=== PATIENT | female | born 1950 | race Caucasian/White ===

== ENCOUNTER 2019-12-04 07:12 | Inpatient (IN) | payer MEDICARE, MEDICAID ==
[~2019-12-04] VITALS: Ht 152.4 cm; Wt 53.1 kg
[~2019-12-04 07:12] MED LIST: ASPI-1497 PO; ATEN-42 PO; CALCIUM; HYDROCHLOROTHIAZIDE; LOSA25TA26 PO
[2019-12-04] MEDS ORDERED: ACETAMINOPHEN 325MG TABLET PO ONE (07:45)
[2019-12-04 07:49] LABS: BASOPHILS % 0.5 % (0.0-2.0); EOSINOPHILS % 2.2 % (0.0-5.0); HEMATOCRIT. 39.5 % (36.0-48.0); HEMOGLOBIN. 12.9 g/dL (12.0-16.0); LYMPHOCYTES % 20.5 % (20.0-50.0); MEAN CORPUSCULAR VOLUME 88.9 fL (81.0-99.0); MONOCYTES % 7.7 % (2.0-8.0); NEUTROPHILS % 69.1 % (40.0-76.0); PLATELET 168 x1000/uL (130-400); RED BLOOD CELL COUNT 4.44 mill/uL (4.2-5.4)
[2019-12-04 07:55] LABS: CHLORIDE 102 mEq/L (98-107)
[2019-12-04] MEDS ORDERED: ASPIRIN 325MG EC TABLET PO ONE (08:30)
[2019-12-04 10:30] VITALS: BP 96/62
[2019-12-04] MEDS ORDERED: ZOLPIDEM TARTRATE 5MG TABLET PO PRN (11:00)
[2019-12-04] MEDS ORDERED: ONDANSETRON HCL 4MG/2ML INJ IV PRN (11:00)
[2019-12-04] MEDS ORDERED: POTASSIUM CHLORIDE 20MEQ TABLET SR PO SCH (11:00)
[2019-12-04] MEDS ORDERED: ACETAMINOPHEN 325MG TABLET PO PRN (11:00)
[2019-12-04] MEDS ORDERED: CLONIDINE 0.1MG TABLET PO PRN (11:00)
[2019-12-04] MEDS ORDERED: DOCUSATE SODIUM 100MG CAPSULE PO PRN (11:00)
[2019-12-04] MEDS ORDERED: MAGNESIUM/ALUMINUM HYDROXIDE/SIMETHICONE 30ML UDC PO PRN (11:00)
[2019-12-04] MEDS ORDERED: DIPHENHYDRAMINE 50MG/ML VIAL IV PRN (11:00)
[2019-12-04] MEDS ORDERED: GUAIFENESIN 200MG/10ML SUGAR FREE UDC PO PRN (11:00)
[2019-12-04 12:00] VITALS: BP 96/45
[2019-12-04] MEDS ORDERED: POTASSIUM CHLORIDE 20MEQ TABLET SR PO NR (12:00)
[2019-12-04] MEDS ORDERED: ENOXAPARIN 40MG/0.4ML SYR SUBCUT SCH (12:00)
[2019-12-04] MEDS: DILTIAZEM HCL 60MG TABLET PO SCH ×3 (12:00→23:47)
[2019-12-04] MEDS: APIXABAN 5 MG TABLET PO SCH ×2 (12:37→21:37)
[2019-12-04] MEDS: MAGNESIUM GLUCONATE 500MG TABLET PO SCH (13:30)
[2019-12-04] MEDS: SODIUM CHLORIDE 0.9% INJ 3ML FLUSH IVF SCH ×2 (14:16→21:37)
[2019-12-04] MEDS ORDERED: METO5TAB7 PO (15:23)
[2019-12-04] MEDS ORDERED: CARV6.2548 PO (15:23)
[2019-12-04] MEDS ORDERED: DEXL60CA3 PO (15:23)
[2019-12-04] MEDS ORDERED: CALC-900 PO (15:23)
[2019-12-04] MEDS ORDERED: APIX5TAB PO (15:23)
[2019-12-04 16:00] VITALS: BP 96/62
[2019-12-04] MEDS: POTASSIUM CHLORIDE 20MEQ TABLET SR PO SCH (17:32)
[2019-12-04] MEDS: FUROSEMIDE 40MG TABLET PO SCH (18:00)
[2019-12-04] MEDS: DIGOXIN 125MCG TABLET PO SCH (18:21)
[2019-12-04 21:42] VITALS: BP 90/70
[2019-12-05] VITALS (8 sets, daily range): BP systolic 87–128; BP diastolic 63–98
[2019-12-05] MEDS: ACETAMINOPHEN 325MG TABLET PO PRN (04:33)
[2019-12-05] MEDS: DILTIAZEM HCL 60MG TABLET PO SCH (06:00)
[2019-12-05] MEDS: FUROSEMIDE 40MG TABLET PO SCH ×2 (06:00→18:01)
[2019-12-05] MEDS: SODIUM CHLORIDE 0.9% INJ 3ML FLUSH IVF SCH ×3 (06:15→21:02)
[2019-12-05 06:48] LABS: BASOPHILS % 0.6 % (0.0-2.0); EOSINOPHILS % 2.8 % (0.0-5.0); HEMATOCRIT. 39.4 % (36.0-48.0); LYMPHOCYTES % 17.8 % (20.0-50.0); MEAN CORPUSCULAR HEMOGLOBIN 29.1 pg (28.0-32.0); MEAN PLATELET VOLUME 10.1 fl (7.4-10.4); MONOCYTES % 7.6 % (2.0-8.0); NEUTROPHILS % 71.2 % (40.0-76.0); PLATELET 157 x1000/uL (130-400); RED BLOOD CELL COUNT 4.47 mill/uL (4.2-5.4); RED CELL DISTRIBUTION WIDTH 14.6 % (11.6-14.6)
[2019-12-05 07:20] LABS: CHLORIDE 103 mEq/L (98-107)
[2019-12-05 07:30] LABS: PHOSPHORUS 3.5 mg/dL (2.5-4.9)
[2019-12-05 07:31] LABS: LDL CHOLESTEROL 73 mg/dL (5-100)
[2019-12-05 07:33] LABS: HDL CHOLESTEROL 45 mg/dL (40-59)
[2019-12-05] MEDS: MAGNESIUM GLUCONATE 500MG TABLET PO SCH (09:03)
[2019-12-05] MEDS: APIXABAN 5 MG TABLET PO SCH ×2 (09:03→20:57)
[2019-12-05] MEDS: POTASSIUM CHLORIDE 20MEQ TABLET SR PO SCH ×2 (09:03→16:31)
[2019-12-05] MEDS: DILTIAZEM HCL 90MG TABLET PO SCH ×2 (12:00→18:01)
[2019-12-05] MEDS ORDERED: MAGNESIUM 2 G PREMIX 50 ML IV NR (13:00)
[2019-12-05] MEDS: DIGOXIN 125MCG TABLET PO SCH (18:01)
[2019-12-05] MEDS: AMIODARONE HCL 200 MG TABLET PO SCH (20:58)
[2019-12-06] VITALS: BP 142/86
[2019-12-06] MEDS: DILTIAZEM HCL 90MG TABLET PO SCH ×4 (00:36→17:51)
[2019-12-06 04:00] VITALS: BP 134/77
[2019-12-06] MEDS: FUROSEMIDE 40MG TABLET PO SCH ×3 (05:07→18:07)
[2019-12-06] MEDS: SODIUM CHLORIDE 0.9% INJ 3ML FLUSH IVF SCH ×3 (05:07→21:06)
[2019-12-06 06:31] LABS: BASOPHILS % 0.7 % (0.0-2.0); HEMATOCRIT. 42.5 % (36.0-48.0); HEMOGLOBIN. 14.1 g/dL (12.0-16.0); LYMPHOCYTES % 16.9 % (20.0-50.0); MEAN CORPUSCULAR VOLUME 87.3 fL (81.0-99.0); MEAN PLATELET VOLUME 10.3 fl (7.4-10.4); MONOCYTES % 8.2 % (2.0-8.0); NEUTROPHILS % 72.2 % (40.0-76.0); PLATELET 170 x1000/uL (130-400); RED BLOOD CELL COUNT 4.87 mill/uL (4.2-5.4); RED CELL DISTRIBUTION WIDTH 15.2 % (11.6-14.6)
[2019-12-06 06:39] LABS: CHLORIDE 98 mEq/L (98-107)
[2019-12-06 08:00] VITALS: BP 109/86
[2019-12-06] MEDS: APIXABAN 5 MG TABLET PO SCH ×2 (09:16→21:05)
[2019-12-06] MEDS: AMIODARONE HCL 200 MG TABLET PO SCH ×2 (09:17→21:06)
[2019-12-06] MEDS: MAGNESIUM GLUCONATE 500MG TABLET PO SCH (09:17)
[2019-12-06] MEDS: POTASSIUM CHLORIDE 20MEQ TABLET SR PO SCH ×2 (09:17→17:00)
[2019-12-06] MEDS: ACETAMINOPHEN 325MG TABLET PO PRN ×2 (09:18→23:24)
[2019-12-06 12:00] VITALS: BP 100/68
[2019-12-06] MEDS ORDERED: MAGNESIUM 2 G PREMIX 50 ML IV NR (13:00)
[2019-12-06 16:00] VITALS: BP 100/63
[2019-12-06] MEDS: POTASSIUM CHLORIDE 20MEQ TABLET SR PO NR ×2 (16:49→18:07)
[2019-12-06] MEDS: DIGOXIN 125MCG TABLET PO SCH (18:07)
[2019-12-06 20:00] VITALS: BP 95/61
[2019-12-06] MEDS: CARVEDILOL 6.25 MG TABLET PO SCH (21:00)
[2019-12-06] MEDS ORDERED: SODIUM CHLORIDE 45ML SPRAY NS PRN (22:00)
[2019-12-07] VITALS: BP 97/61
[2019-12-07 04:15] VITALS: BP 93/67
[2019-12-07] MEDS: FUROSEMIDE 40MG TABLET PO SCH ×2 (05:49→16:36)
[2019-12-07] MEDS: SODIUM CHLORIDE 0.9% INJ 3ML FLUSH IVF SCH ×2 (05:49→15:46)
[2019-12-07 06:32] LABS: BASOPHILS % 0.5 % (0.0-2.0); EOSINOPHILS % 1.8 % (0.0-5.0); HEMATOCRIT. 41.1 % (36.0-48.0); HEMOGLOBIN. 13.7 g/dL (12.0-16.0); LYMPHOCYTES % 18.6 % (20.0-50.0); MEAN CORPUSCULAR HEMOGLOBIN 29.1 pg (28.0-32.0); MEAN CORPUSCULAR VOLUME 87.8 fL (81.0-99.0); MEAN PLATELET VOLUME 10.3 fl (7.4-10.4); MONOCYTES % 9.6 % (2.0-8.0); NEUTROPHILS % 69.5 % (40.0-76.0); PLATELET 162 x1000/uL (130-400); RED BLOOD CELL COUNT 4.69 mill/uL (4.2-5.4); RED CELL DISTRIBUTION WIDTH 15.1 % (11.6-14.6)
[2019-12-07 07:25] LABS: CHLORIDE 98 mEq/L (98-107)
[2019-12-07 08:00] VITALS: BP 97/62
[2019-12-07] MEDS: CARVEDILOL 6.25 MG TABLET PO SCH (08:40)
[2019-12-07] MEDS: POTASSIUM CHLORIDE 20MEQ TABLET SR PO SCH ×2 (08:41→16:36)
[2019-12-07] MEDS: MAGNESIUM GLUCONATE 500MG TABLET PO SCH (08:41)
[2019-12-07] MEDS: APIXABAN 5 MG TABLET PO SCH (08:41)
[2019-12-07] MEDS: AMIODARONE HCL 200 MG TABLET PO SCH (09:21)
[2019-12-07 12:00] VITALS: BP 109/75
[2019-12-07 15:52] VITALS: BP 109/75
[2019-12-07 16:00] VITALS: BP 104/72
[2019-12-07] MEDS: DIGOXIN 125MCG TABLET PO SCH (16:37)
[2019-12-07] MEDS ORDERED: CARVEDILOL 3.125 MG TABLET PO SCH (21:00)
== END 2019-12-07 17:00 | disposition home or self-care (01) | DRG 206 ==
LOC: ER 07:39 → 5WST 08:48 → ENRESERV 09:01 → ER 10:09
PROVIDERS: ADMIT Internal Medicine; ATTEND Internal Medicine
DX: M94.0 Chondrocostal junction syndrome [Tietze] (principal); I50.42 Chronic combined systolic (congestive) and diastolic (congestive) heart failure; E46 Unspecified protein-calorie malnutrition; I48.92 Unspecified atrial flutter; I48.19 Other persistent atrial fibrillation; E83.42 Hypomagnesemia; M19.90 Unspecified osteoarthritis, unspecified site; I95.9 Hypotension, unspecified; R79.89 Other specified abnormal findings of blood chemistry; I11.0 Hypertensive heart disease with heart failure; I34.0 Nonrheumatic mitral (valve) insufficiency; Z87.19 Personal history of other diseases of the digestive system; Z98.84 Bariatric surgery status; Z79.01 Long term (current) use of anticoagulants; Z79.899 Other long term (current) drug therapy; Z68.22 Body mass index [BMI] 22.0-22.9, adult; Z82.49 Family history of ischemic heart disease and other diseases of the circulatory system
CPT/HCPCS: 36415; 71045; 80048; 80053; 80061; 83735; 83880; 84100; 84443; 84484; 85025; 93005; 93306; 93970; 99291; J3475

== ENCOUNTER → 2020-05-28 | Outpatient (CLI) | payer MEDICARE, MEDICAID ==
[~2020-05-28] MED LIST changes: +APIX5TAB PO; -ASPI-1497 PO; -ATEN-42 PO; +CALC-900 PO; +CARV6.2548 PO; +DEXL60CA3 PO; -LOSA25TA26 PO; +METO5TAB7 PO
== END | disposition home or self-care (01) ==
LOC: LAB 07:19
PROVIDERS: ATTEND Internal Medicine Clinical Cardiac Electrophysiology
DX: Z20.822 Contact with and (suspected) exposure to COVID-19 (principal); I50.22 Chronic systolic (congestive) heart failure
CPT/HCPCS: 87426

== ENCOUNTER 2020-10-15 12:53 | Inpatient (IN) | payer MEDICARE, MEDICAID ==
[~2020-10-15] VITALS: Ht 149.9 cm; Wt 57.2 kg
[2020-10-15 15:58] LABS: CHLORIDE 108 mEq/L (98-107)
[2020-10-15 15:59] LABS: BASOPHILS % 0.4 % (0.0-2.0); EOSINOPHILS % 1.2 % (0.0-5.0); HEMOGLOBIN. 10.9 g/dL (12.0-16.0); LYMPHOCYTES % 11.1 % (20.0-50.0); MEAN CORPUSCULAR HEMOGLOBIN 27.8 pg (28.0-32.0); MEAN CORPUSCULAR VOLUME 84.1 fL (81.0-99.0); MEAN PLATELET VOLUME 10.5 fl (7.4-10.4); MONOCYTES % 8.2 % (2.0-8.0); NEUTROPHILS % 79.1 % (40.0-76.0); PLATELET 234 x1000/uL (130-400); RED BLOOD CELL COUNT 3.93 mill/uL (4.2-5.4)
[2020-10-15] MEDS ORDERED: POTASSIUM CHLORIDE 20MEQ TABLET SR PO NR (17:30)
[2020-10-15] MEDS: APIXABAN 5 MG TABLET PO SCH (19:15)
[2020-10-15] MEDS: AMIODARONE HCL 200 MG TABLET PO SCH (19:15)
[2020-10-15 23:50] VITALS: BP 93/71
[2020-10-16] MEDS ORDERED: CLONIDINE 0.1MG TABLET PO PRN (00:45)
[2020-10-16] MEDS ORDERED: ACETAMINOPHEN 500MG TABLET PO PRN (00:45)
[2020-10-16] MEDS ORDERED: ONDANSETRON HCL 4MG/2ML INJ IV PRN (00:45)
[2020-10-16] MEDS: ACETAMINOPHEN 325MG TABLET PO PRN (01:15)
[2020-10-16] MEDS: OMEPRAZOLE 20MG CAPSULE EXTENDED RELEASE PO SCH (06:37)
[2020-10-16 07:40] LABS: CHLORIDE 109 mEq/L (98-107)
[2020-10-16 07:41] LABS: BASOPHILS % 0.5 % (0.0-2.0); EOSINOPHILS % 1.3 % (0.0-5.0); HEMATOCRIT. 31.4 % (36.0-48.0); HEMOGLOBIN. 10.4 g/dL (12.0-16.0); LYMPHOCYTES % 14.4 % (20.0-50.0); MEAN CORPUSCULAR HEMOGLOBIN 27.7 pg (28.0-32.0); MEAN CORPUSCULAR VOLUME 83.9 fL (81.0-99.0); MEAN PLATELET VOLUME 9.7 fl (7.4-10.4); MONOCYTES % 8.7 % (2.0-8.0); NEUTROPHILS % 75.1 % (40.0-76.0); PLATELET 230 x1000/uL (130-400); RED BLOOD CELL COUNT 3.74 mill/uL (4.2-5.4); RED CELL DISTRIBUTION WIDTH 16.3 % (11.6-14.6)
[2020-10-16] MEDS ORDERED: AMI2 PO (07:52)
[2020-10-16] MEDS ORDERED: SACU1TAB PO (07:52)
[2020-10-16] MEDS ORDERED: POTA20TA82 PO ×2 (07:52)
[2020-10-16] MEDS ORDERED: FURO80TA87 PO (07:52)
[2020-10-16] MEDS ORDERED: SPIR50TA5 PO (07:52)
[2020-10-16] MEDS ORDERED: LORA10TA7 PO (07:52)
[2020-10-16] MEDS ORDERED: SIME80TA14 PO (07:52)
[2020-10-16] MEDS ORDERED: FURO-151 PO (07:52)
[2020-10-16 08:00] VITALS: BP 100/70
[2020-10-16] MEDS: APIXABAN 5 MG TABLET PO SCH ×2 (09:02→16:44)
[2020-10-16] MEDS: AMIODARONE HCL 200 MG TABLET PO SCH (09:02)
[2020-10-16 12:00] VITALS: BP_SYST 113; BP_SYST 94; BP_DIAS 72; BP_DIAS 81
[2020-10-16] MEDS: MAGNESIUM OXIDE 400MG TABLET PO SCH (13:58)
[2020-10-16 19:14] VITALS: BP 94/72
[2020-10-16 20:00] VITALS: BP 94/58
[2020-10-17] VITALS: BP 91/74
[2020-10-17] MEDS: ACETAMINOPHEN 325MG TABLET PO PRN ×2 (03:56→20:46)
[2020-10-17 04:00] VITALS: BP 96/63
[2020-10-17] MEDS: OMEPRAZOLE 20MG CAPSULE EXTENDED RELEASE PO SCH (07:12)
[2020-10-17 08:00] VITALS: BP 95/66
[2020-10-17] MEDS: APIXABAN 5 MG TABLET PO SCH ×2 (08:30→16:42)
[2020-10-17] MEDS: MAGNESIUM OXIDE 400MG TABLET PO SCH (08:30)
[2020-10-17] MEDS: AMIODARONE HCL 200 MG TABLET PO SCH (08:30)
[2020-10-17 12:00] VITALS: BP 96/71
[2020-10-17] MEDS ORDERED: METOPROLOL TARTRATE 25MG TABLET PO SCH (15:45)
[2020-10-17 16:00] VITALS: BP 92/66
[2020-10-17] MEDS ORDERED: MIDODRINE HCL 2.5MG TABLET PO SCH (16:00)
[2020-10-17] MEDS ORDERED: POTASSIUM CHLORIDE 20MEQ/PACKET PO NR (16:00)
[2020-10-17] MEDS ORDERED: MAGNESIUM 1 G PREMIX 100 ML IV NR (16:00)
[2020-10-17] MEDS ORDERED: DIGOXIN 500MCG/2ML AMP IV SCH (18:00)
[2020-10-17 20:00] VITALS: BP 105/79
[2020-10-18] VITALS (8 sets, daily range): BP systolic 91–115; BP diastolic 58–83
[2020-10-18] MEDS: OMEPRAZOLE 20MG CAPSULE EXTENDED RELEASE PO SCH (06:27)
[2020-10-18 07:27] LABS: CHLORIDE 112 mEq/L (98-107)
[2020-10-18] MEDS: MAGNESIUM OXIDE 400MG TABLET PO SCH (08:44)
[2020-10-18] MEDS: APIXABAN 5 MG TABLET PO SCH ×2 (08:44→17:04)
[2020-10-18] MEDS: AMIODARONE HCL 200 MG TABLET PO SCH (08:44)
[2020-10-18] MEDS: MIDODRINE HCL 2.5MG TABLET PO SCH ×3 (11:40→21:11)
[2020-10-18] MEDS ORDERED: POTASSIUM CHLORIDE 20MEQ/PACKET PO NR (11:45)
[2020-10-18] MEDS ORDERED: METOPROLOL TARTRATE 25MG TABLET PO NR (14:00)
[2020-10-18] MEDS: METOPROLOL TARTRATE 25MG TABLET PO SCH (21:40)
[2020-10-18] MEDS ORDERED: ZOLPIDEM TARTRATE 5MG TABLET PO NR (23:45)
[2020-10-19] MEDS: ACETAMINOPHEN 325MG TABLET PO PRN (03:49)
[2020-10-19 04:00] VITALS: BP 108/70
[2020-10-19] MEDS: MIDODRINE HCL 2.5MG TABLET PO SCH ×2 (06:39→14:00)
[2020-10-19 06:56] LABS: CHLORIDE 114 mEq/L (98-107)
[2020-10-19] MEDS ORDERED: FAMOTIDINE 20MG TABLET PO SCH (07:20)
[2020-10-19 08:06] VITALS: BP 104/80
[2020-10-19] MEDS: METOPROLOL TARTRATE 25MG TABLET PO SCH (09:00)
[2020-10-19] MEDS: APIXABAN 5 MG TABLET PO SCH (09:01)
[2020-10-19] MEDS: MAGNESIUM OXIDE 400MG TABLET PO SCH (09:01)
[2020-10-19] MEDS: AMIODARONE HCL 200 MG TABLET PO SCH (09:01)
[2020-10-19 12:01] VITALS: BP 95/72
[2020-10-19] MEDS ORDERED: METO-396 MT (13:04)
[2020-10-19 13:27] VITALS: BP 95/72
== END 2020-10-19 15:00 | disposition home or self-care (01) | DRG 309 ==
LOC: ER 12:53 → 6WST 17:01 → CANRESERV 19:40 → ENRESERV 19:40
PROVIDERS: ADMIT Emergency Medicine Emergency Medical Services; ATTEND Family Medicine Adult Medicine
DX: I48.91 Unspecified atrial fibrillation (principal); I50.42 Chronic combined systolic (congestive) and diastolic (congestive) heart failure; I42.8 Other cardiomyopathies; I34.0 Nonrheumatic mitral (valve) insufficiency; D64.9 Anemia, unspecified; E83.42 Hypomagnesemia; E87.6 Hypokalemia; E87.8 Other disorders of electrolyte and fluid balance, not elsewhere classified; I11.0 Hypertensive heart disease with heart failure; Z79.01 Long term (current) use of anticoagulants; Z95.810 Presence of automatic (implantable) cardiac defibrillator; Z79.84 Long term (current) use of oral hypoglycemic drugs; Z79.899 Other long term (current) drug therapy
CPT/HCPCS: 36415; 71045; 80048; 80053; 83735; 83880; 84443; 84484; 85025; 93005; 93306; 93970; 99285; C1893; J1160; J2405; J3475

== ENCOUNTER 2021-04-08 11:58 | Inpatient (IN) | payer MEDICARE, MEDICAID ==
[~2021-04-08] VITALS: Ht 162.6 cm; Wt 72.6 kg
[~2021-04-08 11:58] MED LIST changes: +AMI2 PO; -CALC-900 PO; -CALCIUM; -CARV6.2548 PO; -DEXL60CA3 PO; +FURO-151 PO; -HYDROCHLOROTHIAZIDE; +LORA10TA7 PO; +METO-396 MT; -METO5TAB7 PO; +POTA20TA82 PO
[2021-04-08] MEDS ORDERED: SODIUM CHLORIDE 0.9% 1,000 ML IV ONE (12:45)
[2021-04-08 12:56] LABS: EOSINOPHILS % 2.9 % (0.0-5.0); HEMATOCRIT. 27.3 % (36.0-48.0); LYMPHOCYTES % 9.1 % (20.0-50.0); MEAN PLATELET VOLUME 9.3 fl (7.4-10.4); MONOCYTES % 9.6 % (2.0-8.0); NEUTROPHILS % 77.4 % (40.0-76.0); PLATELET 325 x1000/uL (130-400); RED BLOOD CELL COUNT 4.02 mill/uL (4.2-5.4); RED CELL DISTRIBUTION WIDTH 21.4 % (11.6-14.6)
[2021-04-08 13:03] LABS: CHLORIDE 111 mEq/L (98-107)
[2021-04-08 13:28] LABS: PLATELET ESTIMATE NORMAL
[2021-04-08] MEDS ORDERED: NOREPINEPHRINE 8MG/250ML PMX 250 ML IV PRN (16:15)
[2021-04-08] MEDS ORDERED: KETOROLAC 15MG/ML VIAL IV ONE (16:15)
[2021-04-08] MEDS ORDERED: NOREPINEPHRINE 8 MG in DEXT 5% WATER 242 ML IV PRN (16:15)
[2021-04-08] MEDS ORDERED: KETOROLAC 30MG/ML VIAL IV NR (16:30)
[2021-04-08 19:52] LABS: CLARITY URINE CLEAR (CLEAR); COLOR URINE YELLOW (YELLOW); KETONES URINE NEGATIVE (NEGATIVE); LEUKOCYTE ESTERASE URINE 1+ (NEGATIVE); NITRITE URINE NEGATIVE (NEGATIVE); OCCULT BLOOD URINE NEGATIVE (NEGATIVE); PROTEIN URINE NEGATIVE (NEGATIVE); SPECIFIC GRAVITY URINE 1.021 (1.005-1.030)
[2021-04-09] MEDS ORDERED: CLONIDINE 0.1MG TABLET PO PRN (00:30)
[2021-04-09] MEDS ORDERED: ZOLPIDEM TARTRATE 5MG TABLET PO PRN (00:30)
[2021-04-09] MEDS ORDERED: MAGNESIUM/ALUMINUM HYDROXIDE/SIMETHICONE 30ML UDC PO PRN (00:30)
[2021-04-09] MEDS ORDERED: ACETAMINOPHEN 325MG TABLET PO PRN ×2 (00:30)
[2021-04-09] MEDS ORDERED: ONDANSETRON HCL 4MG/2ML INJ IV PRN (00:30)
[2021-04-09] MEDS ORDERED: DIPHENHYDRAMINE 50MG/ML VIAL IV PRN (00:30)
[2021-04-09] MEDS ORDERED: GUAIFENESIN 200MG/10ML SUGAR FREE UDC PO PRN (00:30)
[2021-04-09] MEDS ORDERED: POTASSIUM CHLORIDE 20MEQ TABLET SR PO NR (00:30)
[2021-04-09] MEDS: HYDROCODONE/ACETAMINOPHEN 5/325MG TABLET PO PRN ×2 (03:48→08:40)
[2021-04-09] MEDS: SODIUM CHLORIDE 0.9% INJ 3ML FLUSH IVF SCH ×3 (06:02→21:39)
[2021-04-09] MEDS: POTASSIUM CHLORIDE 20MEQ TABLET SR PO SCH ×2 (08:40→17:54)
[2021-04-09] MEDS ORDERED: DICLOFENAC SODIUM 1% GEL 50GM TOP SCH (09:00)
[2021-04-09] MEDS ORDERED: APIXABAN 5 MG TABLET PO SCH (09:00)
[2021-04-09] MEDS: AMIODARONE HCL 200 MG TABLET PO SCH ×2 (09:04→21:38)
[2021-04-09] MEDS: OMEPRAZOLE 20MG CAPSULE EXTENDED RELEASE PO SCH ×2 (09:04→21:39)
[2021-04-09] MEDS: MIDODRINE HCL 5MG TABLET PO SCH ×3 (12:03→17:54)
[2021-04-09 18:30] VITALS: BP 102/66
[2021-04-09 20:00] VITALS: BP 95/61
[2021-04-09] MEDS: DICLOFENAC SODIUM 1% GEL 50GM TOP SCH (21:39)
[2021-04-10] VITALS: BP 101/65
[2021-04-10 04:00] VITALS: BP 97/58
[2021-04-10] MEDS ORDERED: CARV3.1242 MT (04:01)
[2021-04-10] MEDS ORDERED: CALC-1042 MT (04:01)
[2021-04-10] MEDS ORDERED: MULT-1146 MT (04:01)
[2021-04-10] MEDS ORDERED: ELDE1CAP PO (04:01)
[2021-04-10 05:38] LABS: HEMATOCRIT. 28.5 % (36.0-48.0); HEMOGLOBIN. 8.4 g/dL (12.0-16.0); MEAN CORPUSCULAR HEMOGLOBIN 20.2 pg (28.0-32.0); MEAN CORPUSCULAR VOLUME 68.5 fL (81.0-99.0); MEAN PLATELET VOLUME 9.1 fl (7.4-10.4); PLATELET 317 x1000/uL (130-400); RED BLOOD CELL COUNT 4.17 mill/uL (4.2-5.4); RED CELL DISTRIBUTION WIDTH 22.4 % (11.6-14.6)
[2021-04-10] MEDS: SODIUM CHLORIDE 0.9% INJ 3ML FLUSH IVF SCH ×3 (06:00→22:22)
[2021-04-10] MEDS: OMEPRAZOLE 20MG CAPSULE EXTENDED RELEASE PO SCH ×2 (07:50→22:21)
[2021-04-10 08:18] VITALS: BP 92/58
[2021-04-10] MEDS: DICLOFENAC SODIUM 1% GEL 50GM TOP SCH ×4 (08:33→22:22)
[2021-04-10] MEDS: MIDODRINE HCL 5MG TABLET PO SCH ×3 (08:36→17:15)
[2021-04-10] MEDS: AMIODARONE HCL 200 MG TABLET PO SCH ×2 (08:42→22:21)
[2021-04-10] MEDS ORDERED: NALOXONE HCL 0.4MG/ML VIAL IV PRN (11:30)
[2021-04-10 11:51] VITALS: BP 88/58
[2021-04-10 16:08] VITALS: BP 122/64
[2021-04-10 17:57] LABS: PLATELET ESTIMATE NORMAL
[2021-04-10 20:00] VITALS: BP 94/70
[2021-04-11] VITALS: BP 115/74
[2021-04-11 05:27] LABS: BASOPHILS % 0.8 % (0.0-2.0); EOSINOPHILS % 2.4 % (0.0-5.0); HEMATOCRIT. 26.7 % (36.0-48.0); HEMOGLOBIN. 7.7 g/dL (12.0-16.0); LYMPHOCYTES % 11.7 % (20.0-50.0); MEAN CORPUSCULAR HEMOGLOBIN 19.7 pg (28.0-32.0); MEAN CORPUSCULAR VOLUME 68.3 fL (81.0-99.0); MONOCYTES % 10.2 % (2.0-8.0); NEUTROPHILS % 74.9 % (40.0-76.0); PLATELET 354 x1000/uL (130-400); RED CELL DISTRIBUTION WIDTH 21.8 % (11.6-14.6)
[2021-04-11] MEDS: OMEPRAZOLE 20MG CAPSULE EXTENDED RELEASE PO SCH ×2 (06:13→21:35)
[2021-04-11] MEDS: SODIUM CHLORIDE 0.9% INJ 3ML FLUSH IVF SCH ×3 (06:13→21:36)
[2021-04-11 07:54] VITALS: BP 97/68
[2021-04-11] MEDS: DICLOFENAC SODIUM 1% GEL 50GM TOP SCH ×4 (08:03→21:37)
[2021-04-11] MEDS: MIDODRINE HCL 5MG TABLET PO SCH ×3 (08:04→21:36)
[2021-04-11] MEDS: AMIODARONE HCL 200 MG TABLET PO SCH (08:04)
[2021-04-11 12:13] VITALS: BP 97/73
[2021-04-11] MEDS ORDERED: DIGOXIN 500MCG/2ML AMP IV STA (12:32)
[2021-04-11] MEDS: FUROSEMIDE 40MG/4ML VIAL IVP SCH (12:46)
[2021-04-11 16:00] VITALS: BP 108/67
[2021-04-11] MEDS ORDERED: DIGOXIN 500MCG/2ML AMP IV SCH ×2 (18:00→19:00)
[2021-04-11 20:00] VITALS: BP 99/65
[2021-04-11] MEDS ORDERED: MAGNESIUM 2 G PREMIX 50 ML IV SCH (20:00)
[2021-04-11] MEDS: METOPROLOL TARTRATE 25MG TABLET PO SCH (21:35)
[2021-04-12] VITALS: BP 117/66
[2021-04-12] MEDS: HYDROCODONE/ACETAMINOPHEN 5/325MG TABLET PO PRN (02:12)
[2021-04-12 04:00] VITALS: BP 105/65
[2021-04-12] MEDS: MIDODRINE HCL 5MG TABLET PO SCH ×2 (06:23→14:17)
[2021-04-12] MEDS: SODIUM CHLORIDE 0.9% INJ 3ML FLUSH IVF SCH ×2 (06:24→14:17)
[2021-04-12 07:19] LABS: BASOPHILS % 0.6 % (0.0-2.0); EOSINOPHILS % 2.4 % (0.0-5.0); HEMOGLOBIN. 7.8 g/dL (12.0-16.0); LYMPHOCYTES % 9.3 % (20.0-50.0); MEAN CORPUSCULAR HEMOGLOBIN 19.7 pg (28.0-32.0); MEAN CORPUSCULAR VOLUME 68.5 fL (81.0-99.0); MEAN PLATELET VOLUME 8.8 fl (7.4-10.4); NEUTROPHILS % 77.7 % (40.0-76.0); PLATELET 343 x1000/uL (130-400); RED BLOOD CELL COUNT 3.95 mill/uL (4.2-5.4)
[2021-04-12 07:43] LABS: DIGOXIN 1.1 ng/mL (0.9-2.0)
[2021-04-12 08:00] VITALS: BP 101/67
[2021-04-12] MEDS: METOPROLOL TARTRATE 25MG TABLET PO SCH (08:33)
[2021-04-12] MEDS: DICLOFENAC SODIUM 1% GEL 50GM TOP SCH ×2 (08:34→14:17)
[2021-04-12] MEDS: FUROSEMIDE 40MG/4ML VIAL IVP SCH (08:34)
[2021-04-12] MEDS: OMEPRAZOLE 20MG CAPSULE EXTENDED RELEASE PO SCH (08:34)
[2021-04-12 12:00] VITALS: BP 109/76
[2021-04-12 16:00] VITALS: BP 101/57
[2021-04-12 16:49] VITALS: BP 101/57
[2021-04-12] MEDS ORDERED: APIXABAN 2.5 MG TABLET PO SCH (17:00)
[2021-04-12 17:05] LABS: TOTAL IRON BINDING CAPACITY 306 ug/dL (250-450)
[2021-04-12] MEDS ORDERED: DIGOXIN 125MCG TABLET PO SCH (18:00)
== END 2021-04-12 17:40 | disposition home or self-care (01) | DRG 554 ==
LOC: ER 11:58 → EDBEDREQSVC 16:11 → EDBEDREQ 16:11 → EDBEDREQTM 16:11 → MICUSO 04-09 09:37 → 6WST 04-09 19:53
PROVIDERS: ADMIT Internal Medicine; ATTEND Internal Medicine
DX: M16.12 Unilateral primary osteoarthritis, left hip (principal); I48.19 Other persistent atrial fibrillation; I50.22 Chronic systolic (congestive) heart failure; I42.8 Other cardiomyopathies; I42.0 Dilated cardiomyopathy; M16.11 Unilateral primary osteoarthritis, right hip; M54.16 Radiculopathy, lumbar region; D64.9 Anemia, unspecified; I08.1 Rheumatic disorders of both mitral and tricuspid valves; E87.6 Hypokalemia; I11.0 Hypertensive heart disease with heart failure; Z79.01 Long term (current) use of anticoagulants; Z95.810 Presence of automatic (implantable) cardiac defibrillator; Z79.899 Other long term (current) drug therapy
CPT/HCPCS: 36415; 73502; 80048; 80053; 80162; 81003; 82270; 83540; 83550; 83735; 83880; 84484; 85025; 93005; 93306; 97162; 99291; J1160; J1885; J1940; J2405; J3475; J3490; J7030